=== PATIENT | female | born 1985 ===

== ENCOUNTER 2022-12-21 09:46 | Outpatient (CLI) | payer OTHER | END 2022-12-21 11:45 | disposition home or self-care (01) | LOC: PRENATAL 09:46 | PROVIDERS: ATTEND Obstetrics & Gynecology Maternal & Fetal Medicine | DX: O35.3XX0 Maternal care for (suspected) damage to fetus from viral disease in mother, not applicable or unspecified (principal); O35.9XX0 Maternal care for (suspected) fetal abnormality and damage, unspecified, not applicable or unspecified; Z3A.20 20 weeks gestation of pregnancy ==

== ENCOUNTER 2023-02-17 11:01 | Inpatient (IN) | payer OTHER ==
[~2023-02-17] VITALS: Ht 152.4 cm; Wt 67.1 kg
[2023-02-17] MEDS ORDERED: NIFEDIPINE ER30 MG (11:59)
[2023-02-17] MEDS ORDERED: LABETALOL HCL100 MG (11:59)
[2023-02-17] MEDS ORDERED: LEVOCETIRIZINE D5 MG (11:59)
[2023-02-17] MEDS ORDERED: PRENATA CHEWAB1 EACH (12:00)
[2023-02-17] MEDS ORDERED: CHILDREN'S ASPI81 MG (12:00)
== END 2023-02-24 16:03 | disposition home or self-care (01) | DRG 831 ==
LOC: ER 11:01 → LDR 16:22 → OB/GYN 02-18 13:50 → LDR 02-20 08:17 → OB/GYN 02-21 15:20
PROVIDERS: ADMIT Obstetrics & Gynecology Obstetrics; ATTEND Obstetrics & Gynecology Obstetrics
PROC: 4A1HXCZ Monitoring of Products of Conception, Cardiac Rate, External Approach (ICD-10-PCS; principal; 2023-02-17)
PROC: BU4CZZZ Ultrasonography of Uterus and Ovaries (ICD-10-PCS; 2023-02-17)
PROC: 4A1HXCZ Monitoring of Products of Conception, Cardiac Rate, External Approach (ICD-10-PCS; 2023-02-17)
DX: O98.512 Other viral diseases complicating pregnancy, second trimester (principal); U07.1 COVID-19; Z3A.19 19 weeks gestation of pregnancy; B34.9 Viral infection, unspecified